=== PATIENT | male | born 1955 | race Two or more races ===

== ENCOUNTER 2022-04-06 07:53 | Emergency (ER) | payer OTHER ==
[~2022-04-06] VITALS: Ht 170.2 cm; Wt 103.2 kg
[~2022-04-06 07:53] MED LIST: CIP500T PO; HYDR-4798 PO; METR500T PO
[2022-04-06 08:13] VITALS: BP 143/88
[2022-04-06 08:32] LABS: Basophils # (auto) 0.1 10 ^3/uL (0-0.2); Basophils % (auto) 0.8 % (0.0-2.0); Eosinophils # (auto) 0 10 ^3/uL (0-0.8); Eosinophils % (auto) 0.3 % (0.0-7.0); Hematocrit 48.7 % (41.0-53.0); Hemoglobin 16.5 g/dL (13.5-17.5); Lymphocytes % (auto) 11.5 % (10.0-50.0); Mean Corpuscular Hgb Conc. 33.9 g/dL (32.0-36.0); Mean Corpuscular Volume 91.4 fL (80.0-100.0); Monocytes % (auto) 5.9 % (0.0-12.0); Neutrophils # (auto) 14.2 10 ^3/uL (1.6-8.6); Neutrophils % (auto) 81.5 % (37.0-80.0); Nucleated Red Blood Cells % 0.1 %; Red Blood Cells 5.33 10^6/uL (4.5-5.90); Red Cell Distribution Width 13.7 % (11.8-14.3); White Blood Cell 17.4 10^3/uL (4.4-10.8)
[2022-04-06 08:46] LABS: Urine Bacteria FEW /hpf (None Seen); Urine Blood 3+ /uL (Negative); Urine Specific Gravity 1.015 (1.001-1.035); Urine WBC 2184 /hpf (0 - 3); Urine WBC Clumps PRESENT /hpf (None Seen)
[2022-04-06 09:04] LABS: Albumin 3.9 g/dL (3.4-5.0); BUN/Creatinine Ratio 8.3; Calcium 9.2 mg/dL (8.5-10.1); Potassium 3.8 mmol/L (3.5-5.1)
[2022-04-06 09:07] LABS: Bilirubin, Total 2.2 mg/dL (0.2-1.0); Total Protein 8.2 g/dL (6.4-8.2)
[2022-04-06] MEDS ORDERED: PHEN200T16 PO (09:29)
[2022-04-06] MEDS ORDERED: CIPR-173 PO (09:29)
[2022-04-06] MEDS ORDERED: TAM04C PO (09:29)
[2022-04-06] MEDS ORDERED: cefTRIAXone SOD 1,000 MG VL IM ONE (09:30)
== END 2022-04-06 09:48 | disposition home or self-care (01) ==
LOC: ER 07:55
DX: N39.0 Urinary tract infection, site not specified (principal); Z79.899 Other long term (current) drug therapy
CPT/HCPCS: 36415; 80053; 81001; 85025; 96372; 99283; J0696

== ENCOUNTER 2022-05-03 13:08 | Emergency (ER) | payer OTHER ==
[~2022-05-03] VITALS: Ht 172.7 cm; Wt 100.0 kg
[~2022-05-03 13:08] MED LIST changes: +CIPR-173 PO; +PHEN200T16 PO; +TAM04C PO
[2022-05-03 16:00] VITALS: BP 139/84
[2022-05-03] MEDS ORDERED: METH750T22 PO (16:09)
[2022-05-03] MEDS ORDERED: TAM04C PO (16:09)
[2022-05-03] MEDS ORDERED: IBUP800T27 PO (16:09)
== END 2022-05-03 16:14 | disposition home or self-care (01) ==
LOC: ER 13:08
DX: S39.012A Strain of muscle, fascia and tendon of lower back, initial encounter (principal); Z76.0 Encounter for issue of repeat prescription; Z79.1 Long term (current) use of non-steroidal anti-inflammatories (NSAID); Z79.2 Long term (current) use of antibiotics; Z79.899 Other long term (current) drug therapy; V49.9XXA Car occupant (driver) (passenger) injured in unspecified traffic accident, initial encounter; Y93.89 Activity, other specified; Y92.410 Unspecified street and highway as the place of occurrence of the external cause; Y99.8 Other external cause status

== ENCOUNTER 2022-12-05 07:43 | Emergency (ER) | payer OTHER ==
[~2022-12-05] VITALS: Ht 172.7 cm; Wt 100.6 kg
[~2022-12-05 07:43] MED LIST changes: +IBUP-1456 PO; +METH-1182 PO; +PHEN-922 PO; -PHEN200T16 PO; -TAM04C PO; +TAMS-35 PO
[2022-12-05 08:28] VITALS: BP 123/84; PULSE 52; RESP 18; TEMP 97.9; O2SAT 97
== END 2022-12-05 10:12 | disposition home or self-care (01) ==
LOC: ER 07:43
DX: K43.9 Ventral hernia without obstruction or gangrene (principal); K80.20 Calculus of gallbladder without cholecystitis without obstruction; Z79.899 Other long term (current) drug therapy
CPT/HCPCS: 74176